=== PATIENT | female | born 1980 | race Caucasian/White ===

== ENCOUNTER → 2019-10-31 | Outpatient (CLI) | payer BC | END | disposition home or self-care (01) | LOC: LABWHC1 10:00 | PROVIDERS: ATTEND Internal Medicine Gastroenterology | DX: Z11.59 Encounter for screening for other viral diseases (principal) | CPT/HCPCS: 87635 ==

== ENCOUNTER 2019-11-03 11:26 | Day surgery (SDC) | payer BC ==
[2019-10-31 16:16] VITALS: BMI 27.2
[~2019-11-03 11:26] MED LIST: LACTATED RINGERS 1,000 ML IV SCH
[2019-11-03] MEDS ORDERED: LACTATED RINGERS 1,000 ML IV ONE (12:33)
[2019-11-03 12:37] VITALS: TEMP 98
--- NOTE | 2019-11-03 13:37 | P.PCN ---
Date of Procedure: 11/03/19 Procedure(s) Performed: BRIEF HISTORY: Patient is a 39-year-old pleasant white female scheduled for an elective colonoscopy as a part of value should of chronic diarrhea since June of this year. This was diagnosed with Hodgkin's lymphoma neoplasm thousand 19 and status post chemotherapy followed by chemotherapy that she received from April 08June of this year. She started having severe diarrhea since June of this year with bowel movements anywhere from from 5-15 a day which are loose to watery in consistency but no bleeding. He subsequently underwent stem cell transplant in August of this year. She has been having intermittent diarrhea since then. PROCEDURE PERFORMED: Colonoscopy with random biopsy. PREOPERATIVE DIAGNOSIS: Chronic diarrhea since June this year. IV sedation per Anesthesia. PROCEDURE: After informed consent was obtained, the patient, was brought into [facility] endoscopy unit. IV sedation was administered by Anesthesia under continuous monitoring. Digital rectal examination was normal. Initially the Olympus CF-160 flexible video colonoscope was then inserted in the rectum, gradually advanced into the cecum without any difficulty. Careful examination was performed as the scope was gradually being withdrawn. Ileocecal valve and the appendiceal orifice were visualized and appeared normal. Prep was excellent. Terminal ileum was intubated and 20 cm visualized and appeared normal. Random biopsies were done from this area. Mucosa of the cecum, ascending colon, transverse colon, descending colon, sigmoid colon, and rectum appeared normal. Retroflexion was performed in the rectum and no lesions were seen. Random biopsies were done from ascending and descending colon to rule out microscopic/collagenous colitis The patient tolerated the procedure well. IMPRESSION: Normal-appearing colon from rectum to cecum with no evidence of colorectal neoplasia. RECOMMENDATIONS: Findings of this examination were discussed with the patient as well as her family. She was advised to follow with the biopsy results. She will follow with as scheduled.
[2019-11-03] MEDS ORDERED: hydrALAZINE HCL 20 MG/ML 1 ML VIAL IV ONE (14:21)
[2019-11-03] MEDS ORDERED: LABETALOL SYRINGE 5 MG/ML IV ONE (14:35)
[2019-11-03 15:00] VITALS: BP 159/98; PULSE 95; RESP 20
== END 2019-11-03 15:15 | disposition home or self-care (01) ==
LOC: ORWHC2ENDO 11:26
PROVIDERS: ATTEND Internal Medicine Gastroenterology
DX: K52.9 Noninfective gastroenteritis and colitis, unspecified (principal); I10 Essential (primary) hypertension; Z79.52 Long term (current) use of systemic steroids; Z79.899 Other long term (current) drug therapy; Z94.84 Stem cells transplant status; Z88.1 Allergy status to other antibiotic agents; Z91.040 Latex allergy status; Z91.09 Other allergy status, other than to drugs and biological substances; Z91.048 Other nonmedicinal substance allergy status; Z87.891 Personal history of nicotine dependence; Z98.890 Other specified postprocedural states; Z85.72 Personal history of non-Hodgkin lymphomas; Z87.898 Personal history of other specified conditions; Z92.21 Personal history of antineoplastic chemotherapy
CPT/HCPCS: 88305; 45380; J0360; J1642

== ENCOUNTER → 2020-06-18 | Outpatient (CLI) | payer BC | END | disposition home or self-care (01) | LOC: LABPAT 08:03 | PROVIDERS: ATTEND Student in an Organized Health Care Education/Training Program | DX: Z01.818 Encounter for other preprocedural examination (principal); Z01.810 Encounter for preprocedural cardiovascular examination; Z20.822 Contact with and (suspected) exposure to COVID-19 | CPT/HCPCS: U0003; C9803; U0005 ==

== ENCOUNTER 2020-06-25 07:22 | Day surgery (SDC) | payer BC ==
[2020-06-21 09:46] VITALS: BMI 27.7
[~2020-06-25 07:22] MED LIST changes: +DEXAMETHASONE SOD PHOSPHATE 4 MG/ML 1 ML VIAL IV ONE; +HEPARIN SODIUM,PORCINE 5,000 UNIT/ML 1 ML VIAL SQ PRN; +HYDROmorphone 0.5 MG/0.5 ML SYRINGE IVP PRN; +LIDOCAINE 1% (10MG/ML) FOR IV START INTRADERMA PRN; +MIDAZOLAM 2 MG/2 ML VIAL IV PRN; +ONDANSETRON 4 MG/2 ML VIAL IVP ONE; +fentaNYL (PF) 50 MCG/ML 2 ML AMP IV PRN
[2020-06-25 07:55] VITALS: RESP 16; TEMP 97.4
[2020-06-25] MEDS ORDERED: PROPOFOL 10 MG/ML 20 ML VIAL IV ONE (08:52)
[2020-06-25] MEDS ORDERED: MIDAZOLAM 2 MG/2 ML VIAL ONE (08:52)
[2020-06-25] MEDS ORDERED: fentaNYL (PF) 50 MCG/ML 2 ML AMP ONE (08:52)
[2020-06-25] MEDS ORDERED: LIDOCAINE 1% INJ 10MG/ML (20 ML MDV) SQ ONE ×2 (09:07)
--- NOTE | 2020-06-25 09:52 | P.OP ---
Date of Procedure: 06/25/20 Preoperative Diagnosis: Mediport in place no longer needed Postoperative Diagnosis: Same Procedure(s) Performed: Excision of Mediport Anesthesia: MAC Surgeon: Jarred Sinha Estimated Blood Loss (ml): 5 Condition: stable Description of Procedure: Patient was brought into the operative suite remained in the supine position underwent sedation per department of anesthesia prepped and draped usual sterile fashion timeout performed correct patient correct procedure correct site was verified local anesthetic was used to anesthetize skin and subcutaneous tissues over the anterior left chest directly over the Mediport 4 cm incision was made carried down to the Mediport in the subcutaneous tissues and the capsule was incised the Mediport was removed in its entirety and sent to pathology. Pressure was held and hemostasis was noted. The wound was closed with 3-0 subdermal suture followed by 4-0 running subcuticular Monocryl suture. Sterile dressing was applied patient tolerated the procedure well no apparent complications Plan - Discharge Summary Discharge Rx Participant: No New Discharge Prescriptions: New HYDROcodone/APAP 5-325MG [[place] 5-325] 1 tab PO Q6HR PRN 3 Days #12 tab PRN Reason: Pain No Action Acyclovir [Zovirax] 800 mg PO BID Metoprolol Tartrate [Lopressor] 25 mg PO QAM Cholecalciferol [Vitamin D3 (25 Mcg = 1000 Iu)] 6,000 unit PO DAILY L.acidoph,Paracasei, B.lactis [Probiotic] 1 each PO DAILY [place]-3 Fatty Acids/Fish Oil [Fish Oil 1,000 mg Softgel] 2,000 each PO DIRECTED Lisinopril [Prinivil] 10 mg PO DAILY Amlodipine 1 tab PO DAILY Discharge Medication List Acyclovir [Zovirax] 800 mg PO BID 10/31/19 [History] Cholecalciferol [Vitamin D3 (25 Mcg = 1000 Iu)] 6,000 unit PO DAILY 10/31/19 [History] L.acidoph,Paracasei, B.lactis [Probiotic] 1 each PO DAILY 10/31/19 [History] Metoprolol Tartrate [Lopressor] 25 mg PO QAM 10/31/19 [History] [place]-3 Fatty Acids/Fish Oil [Fish Oil 1,000 mg Softgel] 2,000 each PO DIRECTED 10/31/19 [History] Amlodipine 1 tab PO DAILY 06/21/20 [History] Lisinopril [Prinivil] 10 mg PO DAILY 06/21/20 [History] HYDROcodone/APAP 5-325MG [[place] 5-325] 1 tab PO Q6HR PRN 3 Days #12 tab 06/25/20 [Rx] Follow up Appointment(s)/Referral(s): Jarred Sinha DO [Doctor of Osteopathic Medicine] - 2 Weeks Activity/Diet/Wound Care/Special Instructions: Patient may shower tomorrow, no swimming or baths for 2 weeks Discharge Disposition: HOME SELF-CARE
[2020-06-25 09:55] VITALS: BP 121/76; PULSE 62
== END 2020-06-25 10:19 | disposition home or self-care (01) ==
LOC: OR 07:22
PROVIDERS: ATTEND Student in an Organized Health Care Education/Training Program
DX: Z45.2 Encounter for adjustment and management of vascular access device (principal); C85.90 Non-Hodgkin lymphoma, unspecified, unspecified site; I10 Essential (primary) hypertension; Z80.0 Family history of malignant neoplasm of digestive organs; Z92.21 Personal history of antineoplastic chemotherapy; Z94.84 Stem cells transplant status; Z79.899 Other long term (current) drug therapy; Z88.1 Allergy status to other antibiotic agents; Z91.040 Latex allergy status; Z91.09 Other allergy status, other than to drugs and biological substances
CPT/HCPCS: 81025; 88300; 36590; J2250; J1644; J1100; J2405; J2001; J3010; J2704